=== PATIENT | male | born 1935 | race Asian ===

== ENCOUNTER 2020-10-02 08:07 | Inpatient (IN) | payer MEDICARE, OTHER ==
[~2020-10-02] VITALS: Ht 167.6 cm; Wt 68.0 kg
[2020-10-02 09:32] LABS: Basophils # (auto) 0 10 ^3/uL (0-0.2); Basophils % (auto) 0.2 % (0.0-2.0); Eosinophils # (auto) 0 10 ^3/uL (0-0.8); Eosinophils % (auto) 0.4 % (0.0-7.0); Hemoglobin 14.6 g/dL (13.5-17.5); Lymphocytes # (auto) 0.7 10 ^3/uL (0.4-5.4); Lymphocytes % (auto) 8.3 % (10.0-50.0); Mean Corpuscular Hemoglobin 32.7 pg (28.0-32.0); Mean Corpuscular Hgb Conc. 33.9 g/dL (32.0-36.0); Mean Corpuscular Volume 96.5 fL (80.0-100.0); Monocytes # (auto) 0.8 10 ^3/uL (0-1.3); Monocytes % (auto) 9.9 % (0.0-12.0); Neutrophils # (auto) 6.5 10 ^3/uL (1.6-8.6); Neutrophils % (auto) 81.2 % (37.0-80.0); Red Blood Cells 4.46 10^6/uL (4.5-5.90); White Blood Cell 8.1 10^3/uL (4.4-10.8)
[2020-10-02 09:46] LABS: Urine Bacteria NONE SEEN /hpf (None Seen); Urine Blood Negative /uL (Negative); Urine Mucus FEW (None Seen); Urine Specific Gravity 1.021 (1.001-1.035); Urine WBC <1 /hpf (0 - 3)
[2020-10-02 09:48] LABS: Albumin 3.6 g/dL (3.4-5.0); Potassium 3.5 mmol/L (3.5-5.1)
[2020-10-02 09:51] LABS: BUN/Creatinine Ratio 23.9; Bilirubin, Total 0.9 mg/dL (0.2-1.0); Total Protein 7.6 g/dL (6.4-8.2)
[2020-10-02] MEDS ORDERED: SODIUM CHLORIDE 0.9% 1,000 ML IV ONE (12:00)
[2020-10-02 12:16] LABS: Magnesium 2.5 mg/dL (1.6-2.6)
[2020-10-02 12:29] LABS: INR 0.98 (0.9-1.15); Partial Thromboplastin Time 31.1 sec (23.0-31.2)
[2020-10-02] MEDS ORDERED: IOHEXOL 350 MG/ML 100ML IJ ONE (15:41)
[2020-10-02] MEDS ORDERED: cefTRIAXone 1GM/50ML D5W 50 ML IV ONE ×2 (17:45→18:45)
[2020-10-02] MEDS ORDERED: MORPHINE SULFATE INJECTION 2 MG/ML SYRG IV PRN ×3 (18:15→18:45)
[2020-10-02] MEDS ORDERED: NITROGLYCERIN 0.4 MG SL TAB SL PRN (18:15)
[2020-10-02] MEDS ORDERED: HEPARIN DRIP/D5W 100UNITS/ML 250 ML IV SCH (18:30)
[2020-10-02] MEDS ORDERED: ONDANSETRON HCL 4 MG/2 ML VIAL IV PRN (18:45)
[2020-10-02] MEDS ORDERED: HEPARIN SODIUM (PORCINE) 5000 UNITS/ML 1ML VIAL IV ONE ×2 (18:45→19:30)
[2020-10-02 19:02] LABS: Basophils # (auto) 0 10 ^3/uL (0-0.2); Basophils % (auto) 0.4 % (0.0-2.0); Eosinophils # (auto) 0 10 ^3/uL (0-0.8); Eosinophils % (auto) 0.7 % (0.0-7.0); Hematocrit 40.8 % (41.0-53.0); Hemoglobin 13.9 g/dL (13.5-17.5); Lymphocytes # (auto) 0.8 10 ^3/uL (0.4-5.4); Lymphocytes % (auto) 12.1 % (10.0-50.0); Mean Corpuscular Hemoglobin 32.9 pg (28.0-32.0); Mean Corpuscular Volume 96.7 fL (80.0-100.0); Monocytes # (auto) 0.6 10 ^3/uL (0-1.3); Monocytes % (auto) 8.9 % (0.0-12.0); Neutrophils % (auto) 77.9 % (37.0-80.0); Red Blood Cells 4.21 10^6/uL (4.5-5.90); White Blood Cell 6.4 10^3/uL (4.4-10.8)
[2020-10-02 19:17] LABS: INR 1.04 (0.9-1.15); Partial Thromboplastin Time 31.6 sec (23.0-31.2)
[2020-10-02 19:38] LABS: Red Cell Distribution Width 25.9 % (11.8-14.3)
[2020-10-02] MEDS: SODIUM CHLORIDE 0.9% 1,000 ML IV SCH (20:26)
[2020-10-02] MEDS: HEPARIN DRIP/D5W 100UNITS/ML 250 ML IV SCH (20:43)
[2020-10-02] MEDS: metroNIDAZOLE 500MG/100ML 100 ML IV SCH (22:10)
[2020-10-02] MEDS: FAMOTIDINE (10MG/ML) 2ML VL IV SCH (22:10)
[2020-10-02 23:45] VITALS: BP 153/79
[2020-10-03] MEDS ORDERED: LOSA100T25 PO (01:29)
[2020-10-03] MEDS ORDERED: HYDR500C PO (01:29)
[2020-10-03] MEDS ORDERED: TAM04C PO (01:29)
[2020-10-03 03:33] LABS: INR 1.05 (0.9-1.15); Partial Thromboplastin Time 60.1 sec (23.0-31.2)
[2020-10-03] MEDS: SODIUM CHLORIDE 0.9% 1,000 ML IV SCH (04:39)
[2020-10-03 05:00] VITALS: BP 139/77
[2020-10-03] MEDS: metroNIDAZOLE 500MG/100ML 100 ML IV SCH ×3 (05:20→21:50)
[2020-10-03 08:00] VITALS: BP 141/76
[2020-10-03 09:33] LABS: Albumin 3.1 g/dL (3.4-5.0); Calcium 8.3 mg/dL (8.5-10.1); Potassium 3.6 mmol/L (3.5-5.1)
[2020-10-03 09:36] LABS: Basophils # (auto) 0 10 ^3/uL (0-0.2); Basophils % (auto) 0.3 % (0.0-2.0); Bilirubin, Total 0.8 mg/dL (0.2-1.0); Eosinophils # (auto) 0 10 ^3/uL (0-0.8); Eosinophils % (auto) 0.7 % (0.0-7.0); Hematocrit 40.5 % (41.0-53.0); Hemoglobin 13.7 g/dL (13.5-17.5); Lymphocytes # (auto) 0.8 10 ^3/uL (0.4-5.4); Lymphocytes % (auto) 14.4 % (10.0-50.0); Mean Corpuscular Hemoglobin 32.6 pg (28.0-32.0); Mean Corpuscular Hgb Conc. 33.8 g/dL (32.0-36.0); Mean Corpuscular Volume 96.5 fL (80.0-100.0); Monocytes # (auto) 0.5 10 ^3/uL (0-1.3); Monocytes % (auto) 8.5 % (0.0-12.0); Neutrophils # (auto) 4.1 10 ^3/uL (1.6-8.6); Neutrophils % (auto) 76.1 % (37.0-80.0); Red Blood Cells 4.19 10^6/uL (4.5-5.90); Total Protein 6.6 g/dL (6.4-8.2); White Blood Cell 5.4 10^3/uL (4.4-10.8)
[2020-10-03 09:39] LABS: Red Cell Distribution Width 25.8 % (11.8-14.3)
[2020-10-03] MEDS: cefTRIAXone 1GM/50ML D5W 50 ML IV SCH (09:51)
[2020-10-03] MEDS: FAMOTIDINE (10MG/ML) 2ML VL IV SCH ×2 (09:52→21:50)
[2020-10-03 10:06] LABS: INR 1.04 (0.9-1.15); Partial Thromboplastin Time 57.8 sec (23.0-31.2)
[2020-10-03 12:00] VITALS: BP 132/74
[2020-10-03] MEDS: SOD CHL 0.9%/ KCL 20MEQ 1,000 ML IV SCH ×2 (12:15→19:00)
[2020-10-03 15:18] LABS: INR 1.03 (0.9-1.15); Partial Thromboplastin Time 50.8 sec (23.0-31.2)
[2020-10-03 16:00] VITALS: BP 150/66
[2020-10-03] MEDS: HEPARIN DRIP/D5W 100UNITS/ML 250 ML IV SCH (17:13)
[2020-10-03 22:00] VITALS: BP 127/72
[2020-10-04 05:00] VITALS: BP 128/64
[2020-10-04] MEDS: metroNIDAZOLE 500MG/100ML 100 ML IV SCH ×3 (05:41→21:32)
[2020-10-04 06:06] LABS: INR 1.1 (0.9-1.15)
[2020-10-04 06:13] LABS: Partial Thromboplastin Time 74.1 sec (23.0-31.2)
[2020-10-04] MEDS: FAMOTIDINE (10MG/ML) 2ML VL IV SCH ×2 (08:51→21:32)
[2020-10-04] MEDS: cefTRIAXone 1GM/50ML D5W 50 ML IV SCH (08:51)
[2020-10-04 08:55] VITALS: BP 150/71
[2020-10-04] MEDS ORDERED: ENOXAPARIN SOD 80 MG/0.8ML SYRINGE SC ONE (12:30)
[2020-10-04] MEDS: SOD CHL 0.9%/ KCL 20MEQ 1,000 ML IV SCH (12:51)
[2020-10-04 13:00] VITALS: BP 151/76
[2020-10-04] MEDS ORDERED: LOSARTAN POTASSIUM 50 MG TAB PO ONE (13:15)
[2020-10-04 17:00] VITALS: BP 145/63
[2020-10-04] MEDS ORDERED: TAMSULOSIN HYDROCHLORIDE 0.4 MG CAP PO SCH (18:00)
[2020-10-04] MEDS: ENOXAPARIN SOD 80 MG/0.8ML SYRINGE SC SCH (21:32)
[2020-10-04 22:15] VITALS: BP 133/71
[2020-10-05 05:13] VITALS: BP 152/89
[2020-10-05] MEDS: metroNIDAZOLE 500MG/100ML 100 ML IV SCH (05:38)
[2020-10-05 06:11] LABS: Basophils # (auto) 0 10 ^3/uL (0-0.2); Basophils % (auto) 0.4 % (0.0-2.0); Eosinophils # (auto) 0 10 ^3/uL (0-0.8); Eosinophils % (auto) 0.9 % (0.0-7.0); Hematocrit 40.7 % (41.0-53.0); Hemoglobin 13.7 g/dL (13.5-17.5); Lymphocytes # (auto) 0.7 10 ^3/uL (0.4-5.4); Lymphocytes % (auto) 13.1 % (10.0-50.0); Mean Corpuscular Hemoglobin 32.9 pg (28.0-32.0); Mean Corpuscular Hgb Conc. 33.7 g/dL (32.0-36.0); Mean Corpuscular Volume 97.7 fL (80.0-100.0); Monocytes # (auto) 0.3 10 ^3/uL (0-1.3); Neutrophils # (auto) 4.4 10 ^3/uL (1.6-8.6); Neutrophils % (auto) 80.6 % (37.0-80.0); Nucleated Red Blood Cells % 0.1 %; Red Blood Cells 4.17 10^6/uL (4.5-5.90); White Blood Cell 5.4 10^3/uL (4.4-10.8)
[2020-10-05 06:30] LABS: INR 1.16 (0.9-1.15); Partial Thromboplastin Time 34.2 sec (23.0-31.2); Red Cell Distribution Width 25.8 % (11.8-14.3)
[2020-10-05 09:00] VITALS: BP 153/71
[2020-10-05] MEDS: cefTRIAXone 1GM/50ML D5W 50 ML IV SCH (09:14)
[2020-10-05] MEDS: FAMOTIDINE (10MG/ML) 2ML VL IV SCH (09:14)
[2020-10-05] MEDS: ENOXAPARIN SOD 80 MG/0.8ML SYRINGE SC SCH (09:17)
[2020-10-05] MEDS ORDERED: METOPROLOL TARTRATE 25 MG TAB PO SCH (10:00)
[2020-10-05] MEDS ORDERED: APIXABAN 5 MG TAB PO SCH (10:00)
[2020-10-05] MEDS ORDERED: LOSARTAN POTASSIUM 50 MG TAB PO SCH (10:00)
[2020-10-05] MEDS ORDERED: levoFLOXacin 500 MG TAB PO SCH (10:00)
[2020-10-05] MEDS ORDERED: PANT40TA2 PO (10:24)
[2020-10-05] MEDS ORDERED: MET500T PO ×2 (10:24→10:32)
[2020-10-05] MEDS ORDERED: ONDA-144 PO ×2 (10:24→10:32)
[2020-10-05] MEDS ORDERED: LEVO-28 PO ×2 (10:24→10:32)
[2020-10-05] MEDS ORDERED: APIX5TAB PO ×2 (10:24→10:32)
[2020-10-05] MEDS ORDERED: MET25T PO ×2 (10:24→10:32)
[2020-10-05] MEDS ORDERED: metroNIDAZOLE 500 MG TAB PO SCH (14:00)
[2020-10-05 14:47] VITALS: BP 149/70
[2020-10-12] MEDS ORDERED: APIXABAN 5 MG TAB PO SCH (10:00)
== END 2020-10-05 16:45 | disposition home or self-care (01) | DRG 444 ==
LOC: ER 08:07 → TELE 18:11 → TELE-WESTW 23:29
PROVIDERS: ADMIT Internal Medicine; ATTEND Internal Medicine
PROC: 05HB33Z Insertion of Infusion Device into Right Basilic Vein, Percutaneous Approach (ICD-10-PCS; principal; 2020-10-02)
DX: K80.00 Calculus of gallbladder with acute cholecystitis without obstruction (principal); I26.93 Single subsegmental thrombotic pulmonary embolism without acute cor pulmonale; J96.01 Acute respiratory failure with hypoxia; J98.11 Atelectasis; R16.1 Splenomegaly, not elsewhere classified; N40.1 Benign prostatic hyperplasia with lower urinary tract symptoms; R35.0 Frequency of micturition; R91.1 Solitary pulmonary nodule; I71.4 Abdominal aortic aneurysm, without rupture; N28.1 Cyst of kidney, acquired; K76.89 Other specified diseases of liver; Z20.822 Contact with and (suspected) exposure to COVID-19; D69.6 Thrombocytopenia, unspecified; I11.9 Hypertensive heart disease without heart failure; I25.10 Atherosclerotic heart disease of native coronary artery without angina pectoris; I70.0 Atherosclerosis of aorta; I70.8 Atherosclerosis of other arteries; Z79.899 Other long term (current) drug therapy
CPT/HCPCS: 36415; 71046; 71275; 74176; 78582; 80053; 81001; 83690; 83735; 85025; 85379; 85610; 85730; 87426; 93005; 93306; 93970; 96361; 96365; G0378; J0696; J3490

== ENCOUNTER 2024-06-22 20:12 | Inpatient (IN) | payer MEDICARE, OTHER ==
[~2024-06-22] VITALS: Ht 172.7 cm; Wt 70.0 kg
[~2024-06-22 20:12] MED LIST: APIX5TAB PO; HYDR500C3 PO; LEVO500T91 PO; LOSA100T25 PO; MET25T PO; MET500T PO; ONDA-144 PO; TAMS-35 PO
--- NOTE | 2024-06-22 20:29 | ED.PDOC ---
General HPI Comments 89-year-old male presents with a chief complaint of inability to void and hematuria x 3 days. Patient states that he has not been able to empty his bladder for the past x 3 days. Patient mentions also that he had some hematuria at the beginning. Patient reports that he is also feeling some pressure like sensation in his suprapubic region. No other symptoms or modifying factors present at this time. Chief Complaint: Urinary Time Seen by MD: 20:20 Primary Care Provider: UNKNOWN Reviewed notes: Medications, Allergies Allergies: Coded Allergies: NO KNOWN ALLERGIES (Unverified , 10/02/20) Home Meds Active Scripts Ondansetron (Zofran) 4 Mg Tab, 1 TAB PO Q6HR, #20 TAB Prov:CHRISTINA KHOURY MD 10/05/20 Metronidazole (Metronidazole) 500 Mg Tab, 500 MG PO Q8HR for 7 Days, #21 TAB Prov:CHRISTINA KHOURY MD 10/05/20 Metoprolol Tartrate (Lopressor) 25 Mg Tb, 25 MG PO BID for 30 Days, #60 TAB Prov:CHRISTINA KHOURY MD 10/05/20 Levofloxacin Hemihydrate (LEVOFLOXACIN) 500 Mg Tab, 500 MG PO DAILY for 7 Days, #7 TAB Prov:CHRISTINA KHOURY MD 10/05/20 Apixaban Base (ELIQUIS) 5 Mg Tab, 5 MG PO BID for 23 Days, #46 TAB Prov:CHRISTINA KHOURY MD 10/05/20 Apixaban Base (ELIQUIS) 5 Mg Tab, 10 MG PO BID for 7 Days, #28 TAB Prov:CHRISTINA KHOURY MD 10/05/20 Reported Medications Hydroxyurea (Hydroxyurea) 500 Mg Cap, 500 MG PO DAILY, MG 10/03/20 Losartan Potassium & Hydrochlo (Hyzaar) 1 Tab Tab, 1 TAB PO DAILY, #30 TAB 5 Refills 10/03/20 Tamsulosin Hcl (Flomax) 0.4 Mg Cap, 1 CAP PO DAILY, #30 CAP 11 Refills 10/03/20 Information Source: Patient Mode of Arrival: Ambulatory Severity: Moderate Inability to void: Complete Timing: Days Duration: Since onset Has not urinated for: Hours Prehospital treatment: None Onset: Spontaneous Symptoms: Hematuria, Inability to void History of: BPH Location: Suprapubic Penile discharge: None Modifying factors: None associated signs and symptoms: Hematuria, Inability to Void Past Medical History PAST MEDICAL HISTORY: HTN Surgical History: Denies all surgeries Family History Family History: Reviewed,noncontributory to illness Social History Smoker: Non-Smoker Alcohol: Denies ETOH Use Drugs: Denies Drug Use Lives In: Home Constitutional: denies: chills, diaphoresis, fatigue, fever, malaise, sweats, weakness, others EENTM: denies: blurred vision, double vision, ear bleeding, ear discharge, ear drainage, ear pain, ear ringing, eye pain, eye redness, hearing loss, mouth pain, mouth swelling, nasal discharge, nose bleeding, nose congestion, nose pain, photophobia, tearing, throat pain, throat swelling, voice changes, others Respiratory: denies: cough, hemoptysis, orthopnea, SOB at rest, shortness of breath, SOB with excertion, stridor, wheezing, others Cardiovascular: denies: chest pain, dizzy spells, diaphoresis, Dyspnea on exertion, edema, irregular heart beat, left arm pain, lightheadedness, palpitations, PND, syncope, others Gastrointestinal: denies: abdomen distended, abdominal pain, blood streaked bowels, constipated, diarrhea, dysphagia, difficulty swallowing, hematemesis, melena, nausea, poor appetite, poor fluid intake, rectal bleeding, rectal pain, vomiting, others Genitourinary: reports: hematuria, others (Inability to Void ); denies: burning, dysuria, flank pain, frequency, incontinence, penile discharge, penile sore, pain, testicle pain, testicle swelling, urgency Neurological: denies: dizziness, fainting, headache, left sided numbness, left sided weakness, numbness, paresthesia, pre-existing deficit, right sided numbness, right sided weakness, seizure, speech problems, tingling, tremors, weakness, others Musculoskeletal: denies: back pain, gout, joint pain, joint swelling, muscle pain, muscle stiffness, neck pain, others Integumetry: denies: bruises, change in color, change in hair/nails, dryness, laceration, lesions, lumps, rash, wounds, others Allergic/Immunocompromised: denies: Difficulty Healing, Frequent Infections, Hives, Itching, others Hematologic/Lymphatic: denies: anemia, blood clots, easy bleeding, easy bruising, swollen glands, others Endocrine: denies: excessive hunger, excessive sweating, excessive thirst, excessive urination, flushing, intolerance to cold, intolerance to heat, unexplained weight gain, unexplained weight loss, others Psychiatric: denies: anxiety, bipolar disorder, depression, hopeless, panic disorder, schizophrenia, sleepless, suicidal, others All Other Systems: Reviewed and Negative Physical Exam General Appearance: Mild Distress, Normal HEENT: Normal ENT Inspection, Pharynx Normal, TMs Normal Neck: Full Range of Motion, Non-Tender, Normal, Normal Inspection Respiratory: Chest Non-Tender, Lungs Clear, No Accessory Muscle Use, No Respiratory Distress, Normal Breath Sounds Cardiovascular: No Edema, No JVD, No Murmur, No Gallop, Normal Peripheral Pulses, Regular Rate/Rhythm Breast Exam: Deferred Gastrointestinal: No Organomegaly, No Pulsatile Mass, Normal Bowel Sounds, Soft, Suprapubic, Tenderness Genitalia: Deferred Pelvic: Deferred Rectal: Deferred Extremities: No calf tenderness, Normal capillary refill, Normal inspection, Normal range of motion, Non-tender, No pedal edema Musculoskeletal : Apperance: Normal Neurologic: Alert, dental secretary II-XII nml as Tested, No Motor Deficits, Normal Affect, Normal Mood, No Sensory Deficits Cerebellar Function: Normal Reflexes: Normal Skin: Dry, Normal Color, Warm Lymphatic: No Adenopathy Was a procedure done? Was a procedure done?: No Differential Diagnosis Kidney stone (Female): Other Kidney stone (Male): Pyelonephritis, Renal failure, Urinary obstruction, Urolithiasis, Urinary tract infection, Other Penile/Scrotal: Prostatitis, Urolithiasis, Urinary Retention Urinary Problem (Male): Urethritis, Urolithiasis, UTI X-Ray, Labs, Meds, VS Vital Signs Date Time Temp Pulse Resp B/P (MAP) Pulse Ox O2 Delivery O2 Flow Rate FiO2 06/22/24 22:50 88 06/22/24 22:30 82 16 92/54 (67) 96 06/22/24 22:30 82 16 96 Room Air* 0 21 06/22/24 21:55 94 18 95 Room Air* 0 21 06/22/24 21:55 98.4 94 18 85/50 (62) 95 98.4 06/22/24 20:26 97.2 95 16 104/57 (73) 95 Lab Test 06/22/24 22:13 06/22/24 20:53 06/22/24 20:49 Range/Units Lactic Acid Level 1.9 0.4-2.0 mmol/L Urine Color Light-red Yellow Urine Clarity Ex.turbid Clear Urine pH 5.0 5.0-9.0 Urine Specific [place] 1.004 1.001-1.035 Urine Protein Trace H Negative Urine Ketones Trace Negative Urine Blood 3+ H Negative /uL Urine Nitrite Negative Negative Urine Bilirubin Negative Negative Urine Urobilinogen Normal Negative mg/dL Urine Leukocyte Esterase 2+ Negative /uL Urine RBC [id number] 0 - 3 /hpf Urine WBC Clumps Present None Seen /hpf Urine Microscopic WBC [id number] H 0-3 /HPF Urine Squamous Epithelial Cells None seen <5 /hpf Urine Bacteria None seen None Seen /hpf Urine Creatinine 57.35 30.0-125.0 mg/dL Urine Sodium 102 40-220 mmol/L Urine Glucose Normal Normal mg/dL White Blood Count 40.8 *H 4.4-10.8 10^3/uL Red Blood Count 5.64 4.5-5.90 10^6/uL Hemoglobin 14.4 13.5-17.5 g/dL Hematocrit 46.1 41.0-53.0 % Mean Corpuscular Volume 81.8 80.0-100.0 fL Mean Corpuscular Hemoglobin 25.6 L 28.0-32.0 pg Mean Corpuscular Hemoglobin Concent 31.3 L 32.0-36.0 g/dL Red Cell Distribution Width 21.5 H 11.8-14.3 % Platelet Count 486 H 140-450 10^3/uL Mean Platelet Volume 7.8 6.9-10.8 fL Neutrophils (%) (Auto) 37.0-80.0 % Lymphocytes (%) (Auto) 10.0-50.0 % Monocytes (%) (Auto) 0.0-12.0 % Basophils (%) (Auto) 0.0-2.0 % Neutrophils # (Auto) 1.6-8.6 10 ^3/uL Lymphocytes # (Auto) 0.4-5.4 10 ^3/uL Monocytes # (Auto) 0-1.3 10 ^3/uL Differential Total Cells Counted 100.0 100 Neutrophils % (Manual) 96 H 37.0-80.0 Band Neutrophils % (Manual) 2 Lymphocytes % (Manual) 2 L 10.0-50.0 Monocytes % (Manual) 0 0-12 Eosinophils % (Manual) 0 0-7 Basophils % (Manual) 0 0.0-2.0 Metamyelocytes % (manual) 0 Myelocytes % (Manual) 0 Promyelocytes % (Manual) 0 Blast Cells % (Manual) 0 Reactive Lymphocytes 0 Platelet Estimate Increased Prothrombin Time 12.0 H 9.3-11.8 sec Prothrombin Time INR 1.15 0.9-1.15 Activated Partial Thromboplast Time 28.5 24.5-34.5 SEC Sodium Level 138 136-145 mmol/L Potassium Level 5.6 *H 3.5-5.1 mmol/L Chloride Level 107 98-107 mmol/L Carbon Dioxide Level 24 20-31 mmol/L Anion Gap 7 5-15 Blood Urea Nitrogen 34 H 9-23 mg/dL Creatinine 1.65 H 0.700-1.30 mg/dL Glomerular Filtration Rate Calc 40 >90 mL/min BUN/Creatinine Ratio 20.6 H 10.0-20.0 Serum Glucose 146 H 74-106 mg/dL Hemoglobin A1c 5.6 <5.7 % A1C Calcium Level 9.2 8.7-10.4 mg/dL Total Bilirubin 1.4 H 0.2-1.0 mg/dL Direct Bilirubin 0.6 H <0.3 mg/dL Aspartate Amino Transferase (AST) 22 13-40 U/L Alanine Aminotransferase (ALT) 16 7-40 U/L Alkaline Phosphatase 118 H 46-116 U/L Total Protein 6.2 5.7-8.2 g/dL Albumin 4.3 3.2-4.8 g/dL Current Medications Medications (Trade) Dose Ordered Sig/Domingo Route Start Time Stop Time Status Last Admin Ceftriaxone Sodium 50 ml @ 100 mls/hr ONCE ONCE IV 06/22/24 22:00 06/22/24 22:29 DC 06/22/24 22:11 Sodium Chloride 2,000 ml @ 1,000 mls/hr Q2H ONCE IV 06/22/24 22:00 06/22/24 23:59 DC 06/22/24 22:09 Time of 1ST Reevaluation: 20:50 Reevaluation 1ST: Unchanged Time of 2ND Reevaluation: 21:51 Reevaluation 2ND: Improved Patient Education/Counseling: Diagnosis, Treatment, Prognosis Family Education/Counseling: Diagnosis, Treatment, Prognosis Departure 1 Departure Time of Disposition: 21:51 (Patient reports improvement after barlow catheter ) Impression: Primary Impression: Acute urinary retention Additional Impressions: BPH (benign prostatic hyperplasia) Hyperkalemia Acute renal injury Hypotension Disposition: 09 ADMITTED INPATIENT Admit to: Tele Condition: Guarded Discharged With: Self, Relative, Spouse Critical Care Note Critical Care Time?: No I personally scribed for CONRAD BEARD MD ([email or web address]) on 06/22/24 at 20:29. Electronically submitted by Filemon Brown ([email or web address]). CONRAD BEARD MD Jun 22, 2024 20:29
[2024-06-22 20:56] LABS: Urine Bacteria None Seen /hpf (None Seen)
[2024-06-22 21:19] LABS: Sodium 138 mmol/L (136-145)
[2024-06-22 21:20] LABS: Anion Gap 7 (5-15); Calcium 9.2 mg/dL (8.7-10.4); Carbon Dioxide 24 mmol/L (20-31)
[2024-06-22 21:25] LABS: BUN/Creatinine Ratio 20.6 (10.0-20.0)
[2024-06-22 21:30] LABS: Hematocrit 46.1 % (41.0-53.0); Hemoglobin 14.4 g/dL (13.5-17.5); Mean Corpuscular Hemoglobin 25.6 pg (28.0-32.0); Mean Corpuscular Hgb Conc. 31.3 g/dL (32.0-36.0); Mean Corpuscular Volume 81.8 fL (80.0-100.0); Platelet Count (auto) 486 10^3/uL (140-450); Red Blood Cells 5.64 10^6/uL (4.5-5.90); Red Cell Distribution Width 21.5 % (11.8-14.3)
[2024-06-22 21:42] LABS: Blood Urea Nitrogen 34 mg/dL (9-23); Chloride 107 mmol/L (98-107); Glucose 146 mg/dL (74-106)
[2024-06-22 21:43] LABS: Potassium 5.6 mmol/L (3.5-5.1)
[2024-06-22] MEDS ORDERED: SODIUM CHLORIDE 0.9% 1,000 ML IV ONE (21:45)
[2024-06-22 21:49] LABS: INR 1.15 (0.9-1.15); Partial Thromboplastin Time 28.5 SEC (24.5-34.5)
[2024-06-22 21:55] VITALS: PULSE 94; RESP 18; O2SAT 95
[2024-06-22 21:56] LABS: White Blood Cell 40.8 10^3/uL (4.4-10.8)
[2024-06-22 21:58] LABS: Basophils % (manual) 0 (0.0-2.0); Blast Cells 0; Eosinophils % (manual) 0 (0-7); Metamyelocytes % 0; Monocytes % (manual) 0 (0-12); Myelocytes % 0; Promyelocytes % 0; Reactive Lymphocytes 0
[2024-06-22 22:01] LABS: Urine Blood 3+ /uL (Negative); Urine Clarity Ex.Turbid (Clear); Urine Color Light-Red (Yellow); Urine Protein, UAD TRACE (Negative); Urine Specific Gravity 1.004 (1.001-1.035); Urine Squamous Epithelial Cell None Seen /hpf (<5); Urine Urobilinogen Normal (Negative); Urine WBC 358918 /HPF (0-3); Urine WBC Clumps PRESENT /hpf (None Seen)
[2024-06-22] MEDS: SODIUM CHLORIDE 0.9% 2,000 ML IV ONE (22:09)
[2024-06-22] MEDS: cefTRIAXone 1GM/50ML D5W 50 ML IV ONE (22:11)
[2024-06-22 22:18] LABS: Band Neutrophils % (manual) 2; Lymphocytes % (manual) 2 (10.0-50.0); Platelet Estimate Increased
[2024-06-22 22:30] VITALS: PULSE 82; RESP 16; O2SAT 96
--- NOTE | 2024-06-22 22:30 | DVH ---
CHEST RADIOGRAPH Indication: weak, low BP Technique: Single frontal view of the chest was obtained Comparison: None FINDINGS: Lines and Tubes: None Lungs: Clear Pleura: No effusion. No pneumothorax. Cardiomediastinal contours: Unremarkable Bones: Unremarkable IMPRESSION: Clear lungs.
--- NOTE | 2024-06-22 23:17 | DVHHPRES ---
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 According to the patient and patient's son at bedside, patient was unable to urinate for the last 2-3 days, when he finally was able to urinate he saw blood in his urine which is what prompted this visit to the hospital. Patient reports having similar symptoms 7 years ago when he was in [place] and went to the hospital where he was told he has "bad kidneys". Associated symptoms include suprapubic pressure-like sensation. On review of systems, he is complaining of fatigue, chills, urinary retention. UA showed 2+ leukocyte esterase, [id number] RBCs, 3 million WBCs, serum potassium was 5.6, WBC count 40.8k. 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, abdominal aortic aneurysm of 4.2 cm in 2019, pulmonary embolism, benign prostatic hyperplasia, hypertension, right apical pulmonary nodule Past Surgical History Denies Past Social History Smoking: Quit 40 years ago, prior to that was smoking 1 pack per day for 10 years Alcohol: Denies Drugs: Denies Review of Systems Constitutional: Yes: Chills, Malaise; No: Fever, Sweats, Weakness, Other Eyes: No: Pain, Vision change, Conjunctivae inflammation, Eyelid inflammation, Other, Redness ENT: No: Ear pain, Ear discharge, Nose pain, Nose discharge, Nose congestion, Mouth pain, Mouth swelling, Throat pain, Throat swelling, Other Respiratory: No: Cough, Dry, Shortness of breath, SOB with excertion, Wheezing, Hemoptysis, Pleuritic Pain, Sputum, Wheezing, Other Cardiovascular: No: Chest Pain, Palpitations, Orthopnea, Paroxysmal Noc. Dyspnea, Edema, Lt Headedness, Other Gastrointestinal: No: Nausea, Vomiting, Abdominal Pain, Diarrhea, Constipation, Melena, Hematochezia, Other Genitourinary: No Dysuria, No Frequency, No Incontinence, No Hematuria; Re tention; No Other Musculoskeletal: No: other, neck pain, shoulder pain, arm pain, back pain, hand pain, leg pain, foot pain Skin: No: Rash, Lesions, Jaundice, Bruising, Other Neurological: No: Weakness, Numbness, Incoordination, Change in speech, Confusion, Seizures, Other Allergies: Coded Allergies: NO KNOWN ALLERGIES (Unverified , 10/02/20) Medications Current Medications Medications Dose Ordered Sig/Domingo Route Start Time Stop Time Status Last Admin Dose Admin Acetaminophen 650 mg Q6HP PRN PO 06/22/24 23:15 UNV Cefepime HCl 50 ml @ 12.5 mls/hr Q12HR IV 06/23/24 10:00 UNV Hydroxyurea 500 mg DAILY PO 06/23/24 10:00 UNV Exam Vital Signs Vital Signs Date Time Temp Pulse Resp B/P (MAP) Pulse Ox O2 Delivery O2 Flow Rate FiO2 06/22/24 22:50 88 06/22/24 22:30 16 96 Room Air* 0 21 06/22/24 21:55 98.4 85/50 (62) 98.4 General Appearance: Alert, Oriented X3, Cooperative, No acute distress HEENT: Atraumatic, PERRLA, EOMI Respiratory: Clear to auscultation, Normal air movement Cardiovascular: Regular rate, Normal S1, Normal S2 Abdominal: Normal bowel sounds, Soft, Other (Suprapubic tenderness to palpation) Extremities: No clubbing, No edema, Other (Decreased bilateral pedal pulses) Skin: No breakdown, No significant lesion Neuro: Normal gait, Normal speech, Strength at 5/5 X4 ext, Sensation intact Psych/Mental Status: Mental status NL, Mood NL Labs/Xrays Labs Test 06/22/24 22:13 06/22/24 20:53 06/22/24 20:49 Range/Units Urine Color Light-red Yellow Urine Clarity Ex.turbid Clear Urine pH 5.0 5.0-9.0 Urine Specific [place] 1.004 1.001-1.035 Urine Protein Trace H Negative Urine Ketones Trace Negative Urine Blood 3+ H Negative /uL Urine Nitrite Negative Negative Urine Bilirubin Negative Negative Urine Urobilinogen Normal Negative mg/dL Urine Leukocyte Esterase 2+ Negative /uL Urine RBC [id number] 0 - 3 /hpf Urine WBC Clumps Present None Seen /hpf Urine Microscopic WBC [id number] H 0-3 /HPF Urine Squamous Epithelial Cells None seen <5 /hpf Urine Bacteria None seen None Seen /hpf Urine Glucose Normal Normal mg/dL White Blood Count 40.8 *H 4.4-10.8 10^3/uL Red Blood Count 5.64 4.5-5.90 10^6/uL Hemoglobin 14.4 13.5-17.5 g/dL Hematocrit 46.1 41.0-53.0 % Mean Corpuscular Volume 81.8 80.0-100.0 fL Mean Corpuscular Hemoglobin 25.6 L 28.0-32.0 pg Mean Corpuscular Hemoglobin Concent 31.3 L 32.0-36.0 g/dL Red Cell Distribution Width 21.5 H 11.8-14.3 % Platelet Count 486 H 140-450 10^3/uL Mean Platelet Volume 7.8 6.9-10.8 fL Neutrophils (%) (Auto) 37.0-80.0 % Lymphocytes (%) (Auto) 10.0-50.0 % Monocytes (%) (Auto) 0.0-12.0 % Basophils (%) (Auto) 0.0-2.0 % Neutrophils # (Auto) 1.6-8.6 10 ^3/uL Lymphocytes # (Auto) 0.4-5.4 10 ^3/uL Monocytes # (Auto) 0-1.3 10 ^3/uL Differential Total Cells Counted 100.0 100 Neutrophils % (Manual) 96 H 37.0-80.0 Band Neutrophils % (Manual) 2 Lymphocytes % (Manual) 2 L 10.0-50.0 Monocytes % (Manual) 0 0-12 Eosinophils % (Manual) 0 0-7 Basophils % (Manual) 0 0.0-2.0 Metamyelocytes % (manual) 0 Myelocytes % (Manual) 0 Promyelocytes % (Manual) 0 Blast Cells % (Manual) 0 Reactive Lymphocytes 0 Platelet Estimate Increased Prothrombin Time 12.0 H 9.3-11.8 sec Prothrombin Time INR 1.15 0.9-1.15 Activated Partial Thromboplast Time 28.5 24.5-34.5 SEC Sodium Level 138 136-145 mmol/L Potassium Level 5.6 *H 3.5-5.1 mmol/L Chloride Level 107 98-107 mmol/L Carbon Dioxide Level 24 20-31 mmol/L Anion Gap 7 5-15 Blood Urea Nitrogen 34 H 9-23 mg/dL Creatinine 1.65 H 0.700-1.30 mg/dL Glomerular Filtration Rate Calc 40 >90 mL/min BUN/Creatinine Ratio 20.6 H 10.0-20.0 Serum Glucose 146 H 74-106 mg/dL Calcium Level 9.2 8.7-10.4 mg/dL Assessment/Plan Assessment/Plan Acute onset hematuria Urinary retention Rule out bladder versus prostate malignancy Ct abdomen pelvis: Possible cholelithiasis consider abdominal ultrasound to exclude acute cholecystitis. Hepatic cysts. Splenomegaly measuring 17-18 cm in length. No findings of bowel obstruction stool is noted throughout the colon. Prostate measures 6.7 x 5.8 cm. Correlate with PSA. 2Cm cortical cyst right k idney - renal ultrasound: 10.3 cm long right kidney with hydronephrosis. 10.9 cm left kidney no hydronephrosis. 1.7 x 1.8 x 1.9 cm cyst in the right kidney. Escalante catheter in the bladder in the bladder appears empty. Bladder wall measures 11.5 cm may be secondary to its decompressed state. - ordered PSA - continuous bladder irrigation failed, inserted 22 Thai catheter, returned 3 00 mL of bloody urine output. Manual irrigation - consulted Urology - strict I&Os - normal coagulation studies with a mildly prolonged PT of 12 Possible sepsis due to UTI - IV cefepime b.i.d. - IV NS 2 L - IV NS maintenance at 100 cc/hour - acetaminophen as needed JANNETTE likely hemodynamically mediated/VMN on possible CKD Hyperkalemia - hyperkalemia protocol with insulin dextrose, albuterol and sodium bicarb - Lokelma 10 g p.o. once History of abdominal aortic aneurysm History of blood cell dyscrasia History of right apical pulmonary nodule - resumed home medication hydroxyurea DVT prophylaxis: SCDs Goals of care: Full code, discussed for >16 minutes on 06/22/2024 Plan discussed with patient and patient's son at bedside Plan discussed with Dr. Hwang Plan discussed with: Patient, Son, Other (RN) My Orders Orders - RIMA GREGORIO RESIDENT Procedure Category Date Status Time Admit ADMIT 06/22/24 Transmitted 23:07 Code Status CODE 06/22/24 Transmitted 23:07 Vital Signs POOL 06/22/24 In Process 23:07 Review Orders With POOL 06/22/24 In Process Adm. 23:07 Acetaminophen Tablet PHA 06/22/24 Logged (Tylenol Tablet) 23:15 Notify Of Changes POOL 06/22/24 In Process From Base 23:07 Advance Directive POOL 06/22/24 In Process 23:07 Urine Bacterial TRAVIS 06/22/24 In Process Culture 23:07 Patient Condition ORDERS 06/22/24 Transmitted 23:07 Allergies POOL 06/22/24 In Process 23:07 Notify Of Changes POOL 06/22/24 In Process From Base 23:[address] 06/22/24 Logged Contrast 23:09 Kidney US 06/22/24 Logged 23:09 Hepatic Panel LAB 06/22/24 Logged 23:09 * Urology Consult CONS 06/22/24 Transmitted 23:09 Urine Sodium LAB 06/22/24 In Process 23:09 Urine Creatinine LAB 06/22/24 In Process 23:09 Potassium LAB 06/23/24 Verified 03:09 Insulin R (Human) PHA 06/22/24 Logged (Insulin R) 23:15 Dextrose 50% Syringe PHA 06/22/24 Logged 23:15 Albuterol Medneb PHA 06/22/24 Logged (Ventolin Medneb) 23:15 Sodium Bicarb PHA 06/22/24 Logged 50meq/50ml Syr 23:15 Sodium Zirconium PHA 06/22/24 Logged Cyclosilicate 23:15 Psa Total+% Free LAB 06/22/24 Logged 23:11 Hemoglobin A1c LAB 06/22/24 Logged 23:11 Cefepime 2gm/50ml Ns PHA 06/23/24 Logged (Maxipime 2gm/50ml) 10:00 Hydroxyurea Capsule PHA 06/23/24 Logged (Hydrea Capsule) 10:00 AORTA US 06/23/24 Logged 08:00 Date of Service: Jun 22, 2024 Billing Provider: SOM SIMS MD Common Visit Codes: 44670-UVHCNPT INP/OBS CARE (HIGH) RIMA GREGORIO RESIDENT Jun 22, 2024 23:17 SOM SIMS MD Jun 23, 2024 09:35
[2024-06-22] MEDS: SODIUM ZIRCONIUM CYCL 10 GM PAK PO ONE (23:35)
[2024-06-22] MEDS: SODIUM BICARB 8.4% 50Meq/50ml SYR INJ IV ONE (23:36)
[2024-06-22] MEDS: DEXTROSE (50%) 50ML SYRG IV ONE (23:36)
[2024-06-22 23:41] LABS: Albumin 4.3 g/dL (3.2-4.8); Total Protein 6.2 g/dL (5.7-8.2)
[2024-06-22] MEDS: InsuLIN REG 1unit/0.01ml Soln (100units/ml) IV ONE (23:42)
[2024-06-22] MEDS: ALBUTEROL SULF 2.5 MG/0.5ML(0.5%) NEB SOLN NEB ONE (23:46)
[2024-06-22 23:49] LABS: Bilirubin, Direct 0.6 mg/dL (<0.3); Bilirubin, Total 1.4 mg/dL (0.2-1.0)
--- NOTE | 2024-06-22 23:52 | DVH ---
Exam: CT CT AB PEL WO CON-NO ORAL OR IV History: renal cysts retention Comparison Study: None available at time of dictation. TECHNIQUE: Multidetector CT of the abdomen was performed from lung bases to pubic symphysis. Imaging was performed without IV contrast. Axial, coronal and sagittal multiplanar reformats were obtained fr om the axial data set by the technologist. Radiation Dose Information: CT Dose: CTDI volume is 5.25 mGy. Dose-length product is 284.22 mGy*cm FINDINGS: Evaluation of solid organs is limited due to lack of intravenous contrast use. Findings: Lung Bases: No acute or significant lung base finding. Cardiac size is enlarged.. No pleural or oren cardial effusion. Liver: The liver is normal in size. No focal lesions. Measures 13.7 cm in length. Multiple small in trahepatic cysts. Gallbladder and Biliary Tree: Cholelithiasis Spleen: Splenomegaly 17.8 cm Pancreas: The pancreas is grossly normal in appearance. Adrenal Glands: Unremarkable Kidneys: Kidneys are grossly normal without calculi or hydronephrosis. 2 cm cortical cyst right kidne y Bladder: Escalante catheter in the bladder in the bladder is still distended with urine Bowel: The stomach is grossly normal in appearance. Small bowel and colon are normal in caliber and d istribution. No findings of bowel obstruction although stool is noted throughout the colon. The appe ndix is not visualized; however, no secondary findings of acute appendicitis identified. Ascites: Absent Lymphadenopathy: No mesenteric, retroperitoneal or periportal lymphadenopathy. Abdominal Wall and Mesentery: Unremarkable. Vasculature: The visualized abdominal aorta is normal in size and caliber. Evaluation of abdominal a nd pelvic vessels is limited due to lack of intravenous contrast. Pelvic Organs: Unremarkable Musculoskeletal: No aggressive focal bony lesions, acute fractures or dislocation. Soft tissues: Unremarkable IMPRESSION: 1. Possible cholelithiasis consider abdominal ultrasound to exclude acute cholecystitis. 2. Hepatic cysts 3. Splenomegaly measuring 17-18 cm in length. 4. No findings of bowel obstruction stool is noted throughout the colon. 5. Prostate measures 6.7 x 5.8 cm. Correlate with PSA. 6. Cm cortical cyst right kidney Radiation optimization: All CT scans at this facility use at least one of these dose optimization te chniques: automated exposure control mA and/or kV adjustment per patient size (includes targeted exa ms where dose is matched to clinical indication) or iterative reconstruction. HS:Y
[2024-06-23] VITALS (9 sets, daily range): BP systolic 97–120; BP diastolic 50–60; PULSE 70–85; RESP 13–20; TEMP 97.7–99; O2SAT 94–100
[2024-06-23 00:01] LABS: Creatinine, Urine 57.35 mg/dL (30.0-125.0)
--- NOTE | 2024-06-23 00:01 | DVH ---
INDICATION: cysts TECHNIQUE: Multiple real-time sonographic images of the kidneys and bladder were obtained. COMPARISON: None FINDINGS: There is a 17 x 18 x 19 mm anechoic lesion in the right kidney consistent with a cyst. The right kidney measures 10.3 cm in length, which is normal in size. There is normal echogenicity of the right kidney. There is hydronephrosis in the right kidney. . The left kidney measures 10.9 cm in length, which is normal in size. There is normal echogenicity of the left kidney. No hydronephrosis. No large intraluminal masses are seen in the bladder. Escalante catheter in the bladder in the bladder is empty IMPRESSION: 1. 10.3 cm long right kidney with hydronephrosis 2. 10.9 cm left kidney no hydronephrosis 3. 1.7 x 1.8 x 1.9 cm cyst in the right kidney. 4. Escalante catheter in the bladder in the bladder appears empty. Bladder wall measures 11.5 cm may be secondary to its decompressed state. HS:Y
[2024-06-23] MEDS: ACETAMINOPHEN 325 MG TAB PO PRN (01:30)
[2024-06-23] MEDS: SODIUM CHLORIDE 0.9% 1,000 ML IV SCH (02:30)
[2024-06-23] MEDS: LIDOCAINE 2% TOPICAL JELLY 5 ML URJT TOP ONE ×3 (02:35→04:49)
[2024-06-23] MEDS: LIDOCAINE VISCOUS 2% 15ML UD PO ONE (02:35)
[2024-06-23] MEDS: LIDOCAINE 2%HCL (LOCAL ANESTH.) INJ 10ml MDV ONE (02:38)
[2024-06-23] MEDS: LIDOCAINE HCL 2% TOP JELLY 5ML TOP ONE ×2 (02:41→04:46)
[2024-06-23 03:49] LABS: Hemoglobin 11.8 g/dL (13.5-17.5)
[2024-06-23 03:54] LABS: Hematocrit 38.2 % (41.0-53.0)
[2024-06-23 06:12] LABS: Hematocrit 37.7 % (41.0-53.0); Hemoglobin 11.6 g/dL (13.5-17.5); Mean Corpuscular Hemoglobin 24.8 pg (28.0-32.0); Mean Corpuscular Hgb Conc. 30.7 g/dL (32.0-36.0); Mean Corpuscular Volume 80.7 fL (80.0-100.0); Platelet Count (auto) 503 10^3/uL (140-450); Red Blood Cells 4.66 10^6/uL (4.5-5.90)
[2024-06-23 06:13] LABS: Red Cell Distribution Width 21.6 % (11.8-14.3)
[2024-06-23 06:14] LABS: White Blood Cell 31.8 10^3/uL (4.4-10.8)
[2024-06-23 06:16] LABS: Basophils % (manual) 0 (0.0-2.0); Blast Cells 0; Eosinophils % (manual) 0 (0-7); Metamyelocytes % 0; Myelocytes % 0; Promyelocytes % 0; Reactive Lymphocytes 0
[2024-06-23 06:26] LABS: Potassium 4.2 mmol/L (3.5-5.1); Sodium 144 mmol/L (136-145)
[2024-06-23 06:27] LABS: Anion Gap 14 (5-15)
[2024-06-23 06:42] LABS: Blood Urea Nitrogen 35 mg/dL (9-23); Calcium 8.3 mg/dL (8.7-10.4); Carbon Dioxide 19 mmol/L (20-31); Chloride 111 mmol/L (98-107); Glucose 170 mg/dL (74-106)
[2024-06-23 07:15] LABS: Band Neutrophils % (manual) 2; Lymphocytes % (manual) 3 (10.0-50.0); Monocytes % (manual) 3 (0-12)
[2024-06-23 07:16] LABS: Anisocytosis Moderate
[2024-06-23 07:17] LABS: Hypochromia Slight; Platelet Estimate Increased
[2024-06-23 08:55] LABS: Hepatitis B Surface Antigen Negative (Negative)
[2024-06-23 09:15] LABS: Hepatitis A Ab IgM Negative; Hepatitis B Core IgM Negative (Negative); Hepatitis C Antibody Negative (Negative)
--- NOTE | 2024-06-23 10:48 | DVH ---
LOWER EXTREMITY ARTERIAL DOPPLER EXAM CLINICAL HISTORY: Decreased pedal pulses TECHNIQUE: Bilateral lower extremity arterial Doppler ultrasound evaluation. COMPARISON: None FINDINGS: There are predominantly triphasic waveforms throughout the lower extremity arteries. There are biphas ic waveforms distally in the posterior tibial and dorsalis pedis arteries. There is no focal vessel o cclusion. The peak systolic velocities are within normal limits. No significant flow-limiting atherom atous plaque formation is seen. IMPRESSION: 1. No hemodynamically significant stenosis in the lower extremity arteries. HS:Y
[2024-06-23] MEDS: CEFEPIME 2GM/50ML NS 50 ML IV SCH (11:01)
[2024-06-23] MEDS ORDERED: TAMS0.4C39 (12:00)
[2024-06-23] MEDS ORDERED: ALLO300T2 PO (12:00)
[2024-06-23 14:30] LABS: Basophils # (auto) 0 10 ^3/uL (0-0.2); Basophils % (auto) 0.1 % (0.0-2.0); Eosinophils # (auto) 0 10 ^3/uL (0-0.8); Eosinophils % (auto) 0.1 % (0.0-7.0); Hematocrit 35.2 % (41.0-53.0); Hemoglobin 10.9 g/dL (13.5-17.5); Lymphocytes # (auto) 0.8 10 ^3/uL (0.4-5.4); Lymphocytes % (auto) 2.4 % (10.0-50.0); Mean Corpuscular Hemoglobin 25.1 pg (28.0-32.0); Monocytes # (auto) 0.6 10 ^3/uL (0-1.3); Neutrophils # (auto) 30.8 10 ^3/uL (1.6-8.6); Neutrophils % (auto) 95.4 % (37.0-80.0); Platelet Count (auto) 504 10^3/uL (140-450); Red Blood Cells 4.35 10^6/uL (4.5-5.90)
[2024-06-23 14:31] LABS: Red Cell Distribution Width 21.5 % (11.8-14.3)
[2024-06-23 14:33] LABS: White Blood Cell 32.3 10^3/uL (4.4-10.8)
[2024-06-23 14:41] LABS: Sodium 143 mmol/L (136-145)
[2024-06-23 14:42] LABS: Anion Gap 3 (5-15); Calcium 8.4 mg/dL (8.7-10.4); Carbon Dioxide 28 mmol/L (20-31); Chloride 112 mmol/L (98-107); Potassium 5.4 mmol/L (3.5-5.1)
[2024-06-23 14:47] LABS: BUN/Creatinine Ratio 26.9 (10.0-20.0)
[2024-06-23 14:48] LABS: Blood Urea Nitrogen 32 mg/dL (9-23); Glucose 119 mg/dL (74-106)
[2024-06-23] MEDS: ALBUTEROL SULF 2.5 MG/0.5ML(0.5%) NEB SOLN NEB ONE (15:26)
[2024-06-23] MEDS ORDERED: HYDROcodone-ACET 5/325MG TAB PO PRN (16:30)
[2024-06-23] MEDS: SODIUM ZIRCONIUM CYCL 10 GM PAK PO ONE (17:32)
--- NOTE | 2024-06-23 18:28 | DVHPNRES ---
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 According to the patient and patient's son at bedside, patient was unable to urinate for the last 2-3 days, when he finally was able to urinate he saw blood in his urine which is what prompted this visit to the hospital. Patient reports having similar symptoms 7 years ago when he was in [place] and went to the hospital where he was told he has "bad kidneys". Associated symptoms include suprapubic pressure-like sensation. On review of systems, he is complaining of fatigue, chills, urinary retention. UA showed 2+ leukocyte esterase, [id number] RBCs, 3 million WBCs, serum potassium was 5.6, WBC count 40.8k. 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 Patient reported that the pain in the suprapubic region is better Objective vital signs Vital Sign Date Time Temp Pulse Resp B/P (MAP) Pulse Ox O2 Delivery O2 Flow Rate FiO2 06/23/24 15:40 70 14 100 06/23/24 13:00 97.7 104/60 (75) 97.7 06/23/24 08:00 Room Air* 0 21 Total Intake and Output 06/22/24 06/22/24 06/23/24 15:00 23:00 07:00 Intake Total 100 ml Output Total 100 ml Balance 0 ml medications Current Medications Medications Dose Ordered Sig/Domingo Route Start Time Stop Time Status Last Admin Dose Admin Acetaminophen 650 mg Q6HP PRN PO 1/26/25 23:15 06/23/24 01:30 650 MG Cefepime HCl 50 ml @ 12.5 mls/hr Q12HR IV 06/23/24 10:00 06/23/24 11:01 12.5 MLS/HR Hydroxyurea 500 mg DAILY PO 06/23/24 10:00 Sodium Chloride 1,000 ml @ 100 mls/hr Q10H IV 06/23/24 02:30 06/23/24 13:54 100 MLS/HR Acetaminophen/ Hydrocodone Bitart 1 tab Q6HPRN PRN PO 06/23/24 16:30 Examination Physical Examination Constitutional: Patient was alert and oriented to time, place and person and does not appear to be in acute distress Gen - no pallor, no icterus, no cyanosis, no clubbing, no LAD, no edema . Skin - Patients skin is warm and dry. HEENT - normocephalic, atraumatic, moist mucous membranes. Neck - full ROM, no LAD, no JVD Pulmonary - B/L vesicular breath sounds, no crackles , no wheezing cardiovascular - normal S1,S2 heard. no murmurs heard. GI - soft abdomen with mild tenderness to palpation in the suprapubic region. no hepatospleenomegaly. Bowel sounds normoactive Neurological - Bilateral upper extremity strength 5/5, bilateral lower extremity strength 5/5, no facial droop, normal speech, no tremor, no sensory deficiets. laboratory and microbiology Laboratory Tests 06/23/24 14:15 Test 06/23/24 14:15 Range/Units Serum Glucose 119 H 74-106 mg/dL Problem List/Assessment/Plan Problem List/Assessment/Plan Acute onset hematuria Urinary retention Rule out bladder versus prostate malignancy - Ct abdomen pelvis: Possible cholelithiasis consider abdominal ultrasound to exclude acute cholecystitis. Hepatic cysts. Splenomegaly measuring 17-18 cm in length. No findings of bowel obstruction stool is noted throughout the colon. - Prostate measures 6.7 x 5.8 cm. - renal ultrasound: 10.3 cm long right kidney with hydronephrosis. 10.9 cm left kidney no hydronephrosis. 1.7 x 1.8 x 1.9 cm cyst in the right kidney. Escalante catheter in the bladder in the bladder appears empty. Bladder wall measures 11.5 cm may be secondary to its decompressed state. - PSA pending - manual irrigation done- multiple clots removed. Patient put on continuous bladder irrigation - urology consult pending - strict I&Os Possible sepsis due to UTI - IV cefepime b.i.d. - IV NS 2 L - IV NS maintenance at 100 cc/hour - acetaminophen as needed JANNETTE likely hemodynamically mediated/VMN on possible CKD Hyperkalemia - hyperkalemia protocol with insulin dextrose, albuterol and sodium bicarb - [facility] History of abdominal aortic aneurysm History of blood cell dyscrasia History of right apical pulmonary nodule - resumed home medication hydroxyurea DVT prophylaxis: SCD Goals of care discussed with the patient for over 25 minutes. Full code Plan discussed with Dr. Gordon Plan discussed with: Patient My Orders My Orders Orders - ANJELICA ZELAYA Procedure Category Date Status Time Regular Diet DIET 06/23/24 Transmitted Dinner Bladder US 06/23/24 Transmitted 15:11 Hydrocodone-Acet PHA 06/23/24 In Process 5/325mg Tab ([place] 16:30 Date of Service: Jun 23, 2024 Billing Provider: TONI GORDON MD Common Visit Codes: [id number] CARE 30-74 MIN (45 minutes of critical care time spent including POCUS ) ANJELICA ZELAYA Jun 23, 2024 18:28 TONI GORDON MD Jun 24, 2024 08:58
[2024-06-23] MEDS: hydroxyUREA 500 MG CAP PO SCH (21:46)
[2024-06-24] VITALS (8 sets, daily range): BP systolic 127–136; BP diastolic 56–83; PULSE 72–91; RESP 13–18; TEMP 97.6–98.7; O2SAT 94–98
--- NOTE | 2024-06-24 08:55 | DVHINCON2 ---
Date of service: Jun 24, 2024 Referring Physician Hospitalist Reason for Consultation hematuria History of Present Illness History Source: Patient, RN Notes, MD Notes, [employer] Roofing Estimator Exam Limitations: Language barrier HPI 89 yo male with c/o gross hematuria and difficulty urinating for 3 days. Currently on CBI with light pink urine. Home Meds Reported Medications Allopurinol (Allopurinol) 300 Mg Tab, 1 TAB PO DAILY 06/23/24 Tamsulosin Hcl (Tamsulosin Hcl) 0.4 Mg Cap 06/23/24 Hydroxyurea (Hydroxyurea) 500 Mg Cap, 500 MG PO DAILY, MG 10/03/20 Losartan Potassium & Hydrochlo (Hyzaar) 1 Tab Tab, 1 TAB PO DAILY, #30 TAB 5 Refills 10/03/20 Tamsulosin Hcl (Flomax) 0.4 Mg Cap, 1 CAP PO DAILY, #30 CAP 11 Refills 10/03/20 Past Medical History Patient Family History: Patient reports no known family medical history. Review of Systems Genitourinary: Dysuria, Hematuria H&P Exam Vital Signs Vital Signs Date Time Temp Pulse Resp B/P (MAP) Pulse Ox O2 Delivery O2 Flow Rate FiO2 06/24/24 04:59 98.7 83 13 129/78 (95) 94 98.7 06/23/24 20:00 Room Air* 0 21 General Appeara: Well developed, Well nourished, Normal Appearance Neuro/Mental St: Alert, Oriented Appearance: Appropriate appearance, Appropriate insight Eye contact/ Speech: Cooperative, Good eye contact, Normal speech Skin Exam: Normal inspection, Normal color, Warm/dry Labs/Xrays [place] [address] Ph: [phone] DIAGNOSTIC IMAGING Diagnostic Imaging Report : [id number] Signed PATIENT: CRISTINA SORENSEN ACCT: [id number] UNIT: [id number] : 1935 LOC: TELE ROOM / BED: [address] [place] [address] AGE / SEX: 89 / M ADM STATUS: ADM IN SERVICE 08 ORDERING PHYSICIAN: RIMA GREGORIO RESIDENT PROCEDURE(s): ABPL - CT AB PEL WO CON-NO ORAL OR IV REASON: renal cysts?retention ORDER NUMBER(s): [id number], ACCESSION NUMBER(s): [id number] Exam: CT CT AB PEL WO CON-NO ORAL OR IV History: renal cysts retention Comparison Study: None available at time of dictation. TECHNIQUE: Multidetector CT of the abdomen was performed from lung bases to pubic symphysis. Imaging was performed without IV contrast. Axial, coronal and sagittal multiplanar reformats were obtained from the axial data set by the technologist. Radiation Dose Information: CT Dose: CTDI volume is 5.25 mGy. Dose-length product is 284.22 mGy*cm FINDINGS: Evaluation of solid organs is limited due to lack of intravenous contrast use. Findings: Lung Bases: No acute or significant lung base finding. Cardiac size is enlarged.. No pleural or pericardial effusion. Liver: The liver is normal in size. No focal lesions. Measures 13.7 cm in le ngth. Multiple small intrahepatic cysts. Gallbladder and Biliary Tree: Cholelithiasis Spleen: Splenomegaly 17.8 cm Pancreas: The pancreas is grossly normal in appearance. Adrenal Glands: Unremarkable Kidneys: Kidneys are grossly normal without calculi or hydronephrosis. 2 cm cortical cyst right kidney Bladder: Escalante catheter in the bladder in the bladder is still distended with urine Bowel: The stomach is grossly normal in appearance. Small bowel and colon are normal in caliber and distribution. No findings of bowel obstruction although stool is noted throughout the colon. The appendix is not visualized; however, no secondary findings of acute appendicitis identified. Ascites: Absent Lymphadenopathy: No mesenteric, retroperitoneal or periportal lymphadenopathy. Abdominal Wall and Mesentery: Unremarkable. Vasculature: The visualized abdominal aorta is normal in size and caliber. Evaluation of abdominal and pelvic vessels is limited due to lack of intravenous contrast. Pelvic Organs: Unremarkable Musculoskeletal: No aggressive focal bony lesions, acute fractures or dislocation. Soft tissues: Unremarkable IMPRESSION: 1. Possible cholelithiasis consider abdominal ultrasound to exclude acute cholecystitis. 2. Hepatic cysts 3. Splenomegaly measuring 17-18 cm in length. 4. No findings of bowel obstruction stool is noted throughout the colon. 5. Prostate measures 6.7 x 5.8 cm. Correlate with PSA. 6. Cm cortical cyst right kidney Radiation optimization: All CT scans at this facility use at least one of these dose optimization techniques: automated exposure control mA and/or kV adjustment per patient size (includes targeted exams where dose is matched to clinical indication) or iterative reconstruction. HS:Y ATED BY: LAM TEJEDA Jr., DO DICTATED DATE/TIME: 06/22/242348 SIGNED BY: LAM TEJEDA Jr., DO SIGNED DATE/TIME: 06/22/242348 CC: [place] [address] Ph: [phone] DIAGNOSTIC IMAGING Diagnostic Imaging Report : [id number] Signed PATIENT: CRISTINA SORENSEN ACCT: [id number] UNIT: [id number] : 1935 LOC: TELE ROOM / BED: [address] [place] [address] AGE / SEX: 89 / M ADM STATUS: ADM IN SERVICE 08 ORDERING PHYSICIAN: RIMA GREGORIO RESIDENT PROCEDURE(s): KIDUS - KIDNEY REASON: cysts? ORDER NUMBER(s): [id number], ACCESSION NUMBER(s): [id number] INDICATION: cysts TECHNIQUE: Multiple real-time sonographic images of the kidneys and bladder were obtained. COMPARISON: None FINDINGS: There is a 17 x 18 x 19 mm anechoic lesion in the right kidney consistent with a cyst. The right kidney measures 10.3 cm in length, which is normal in size. There is normal echogenicity of the right kidney. There is hydronephrosis in the right kidney. . The left kidney measures 10.9 cm in length, which is normal in size. There is normal echogenicity of the left kidney. No hydronephrosis. No large intraluminal masses are seen in the bladder. Escalante catheter in the bladder in the bladder is empty IMPRESSION: 1. 10.3 cm long right kidney with hydronephrosis 2. 10.9 cm left kidney no hydronephrosis 3. 1.7 x 1.8 x 1.9 cm cyst in the right kidney. 4. Escalante catheter in the bladder in the bladder appears empty. Bladder wall measures 11.5 cm may be secondary to its decompressed state. HS:Y ATED BY: LAM TEJEDA Jr., DO DICTATED DATE/TIME: 06/22/242357 SIGNED BY: LAM TEJEDA Jr., DO SIGNED DATE/TIME: 06/22/24 1359 CC: Labs Test 06/23/24 14:15 06/23/24 03:33 06/22/24 23:44 06/22/24 22:13 Range/Units White Blood Count 32.3 *H 4.4-10.8 10^3/uL Red Blood Count 4.35 L 4.5-5.90 10^6/uL Hemoglobin 10.9 L 13.5-17.5 g/dL Hematocrit 35.2 L 41.0-53.0 % Mean Corpuscular Volume 81.0 80.0-100.0 fL Mean Corpuscular Hemoglobin 25.1 L 28.0-32.0 pg Mean Corpuscular Hemoglobin Concent 31.0 L 32.0-36.0 g/dL Red Cell Distribution Width 21.5 H 11.8-14.3 % Platelet Count 504 H 140-450 10^3/uL Mean Platelet Volume 7.6 6.9-10.8 fL Neutrophils (%) (Auto) 95.4 H 37.0-80.0 % Lymphocytes (%) (Auto) 2.4 L 10.0-50.0 % Monocytes (%) (Auto) 2.0 0.0-12.0 % Eosinophils (%) (Auto) 0.1 0.0-7.0 % Basophils (%) (Auto) 0.1 0.0-2.0 % Neutrophils # (Auto) 30.8 H 1.6-8.6 10 ^3/uL Lymphocytes # (Auto) 0.8 0.4-5.4 10 ^3/uL Monocytes # (Auto) 0.6 0-1.3 10 ^3/uL Eosinophils # (Auto) 0 0-0.8 10 ^3/uL Basophils # (Auto) 0 0-0.2 10 ^3/uL Nucleated Red Blood Cells 0.0 % Sodium Level 143 136-145 mmol/L Potassium Level 5.4 H 3.5-5.1 mmol/L Chloride Level 112 H 98-107 mmol/L Carbon Dioxide Level 28 20-31 mmol/L Anion Gap 3 L 5-15 Blood Urea Nitrogen 32 H 9-23 mg/dL Creatinine 1.19 0.700-1.30 mg/dL Glomerular Filtration Rate Calc 59 >90 mL/min BUN/Creatinine Ratio 26.9 H 10.0-20.0 Serum Glucose 119 H 74-106 mg/dL Calcium Level 8.4 L 8.7-10.4 mg/dL Differential Total Cells Counted 100.0 100 Neutrophils % (Manual) 92 H 37.0-80.0 Band Neutrophils % (Manual) 2 Lymphocytes % (Manual) 3 L 10.0-50.0 Monocytes % (Manual) 3 0-12 Eosinophils % (Manual) 0 0-7 Basophils % (Manual) 0 0.0-2.0 Metamyelocytes % (manual) 0 Myelocytes % (Manual) 0 Promyelocytes % (Manual) 0 Blast Cells % (Manual) 0 Reactive Lymphocytes 0 Platelet Estimate Increased Hypochromasia (manual) Slight Anisocytosis (manual) Moderate Hepatitis A IgM Antibody Negative Hepatitis B Surface Antigen Negative Negative Hepatitis B Core IgM Antibody Negative Negative Hepatitis C Antibody Negative Negative Lactic Acid Level 1.9 0.4-2.0 mmol/L Test 06/22/24 20:53 06/22/24 20:49 Range/Units Urine Color Light-red Yellow Urine Clarity Ex.turbid Clear Urine pH 5.0 5.0-9.0 Urine Specific [place] 1.004 1.001-1.035 Urine Protein Trace H Negative Urine Ketones Trace Negative Urine Blood 3+ H Negative /uL Urine Nitrite Negative Negative Urine Bilirubin Negative Negative Urine Urobilinogen Normal Negative mg/dL Urine Leukocyte Esterase 2+ Negative /uL Urine RBC [id number] 0 - 3 /hpf Urine WBC Clumps Present None Seen /hpf Urine Microscopic WBC [id number] H 0-3 /HPF Urine Squamous Epithelial Cells None seen <5 /hpf Urine Bacteria None seen None Seen /hpf Urine Creatinine 57.35 30.0-125.0 mg/dL Urine Sodium 102 40-220 mmol/L Urine Glucose Normal Normal mg/dL Prothrombin Time 12.0 H 9.3-11.8 sec Prothrombin Time INR 1.15 0.9-1.15 Activated Partial Thromboplast Time 28.5 24.5-34.5 SEC Hemoglobin A1c 5.6 <5.7 % A1C Total Bilirubin 1.4 H 0.2-1.0 mg/dL Direct Bilirubin 0.6 H <0.3 mg/dL Aspartate Amino Transferase (AST) 22 13-40 U/L Alanine Aminotransferase (ALT) 16 7-40 U/L Alkaline Phosphatase 118 H 46-116 U/L Total Protein 6.2 5.7-8.2 g/dL Albumin 4.3 3.2-4.8 g/dL Microbiology Date/Time Source Procedure Growth Status 06/22/24 22:13 Blood Blood Culture - Preliminary NO GROWTH AFTER 24 HOURS OF INCUBATION. Resulted Assessment/Plan Problem List: (1) Gross hematuria (2) BPH (benign prostatic hyperplasia) (3) Acute urinary retention Plan continue CBI manual irrigation PRN cysto TBA inpt vs oupt depending on clinical course. would benefit from TURP Plan discussed with: Other NIKI ECHEVERRIA NP Jun 24, 2024 08:54
--- NOTE | 2024-06-24 09:04 | ECG ---
[facility] Test Date: 2024-06-22 Test Time: 22:50:10 Pat Name: CRISTINA SORENSEN Department: ER Room: 0220T B Gender: M Gis Mapping Technician: : 1935 Requested By: CONRAD BEARD Order Number: [id number] Reading MD: Pedro Khan Measurements Intervals [place] Rate: 88 P: 7 AK: 144 QRS: 264 QRSD: 100 T: 31 QT: 399 QTc: 483 Interpretive Statements Sinus rhythm Consider right ventricular hypertrophy Inferior infarct, old Electronically Signed On 06-25-2024 8:51:47 PST by Pedro Khan Please click the below link to view image of tracing.
[2024-06-24 09:06] LABS: PSA Free 3.68 ng/mL; Prostate Specific Antigen 10.9 ng/mL (0.0-4.0)
[2024-06-24 10:59] LABS: Hemoglobin 10.2 g/dL (13.5-17.5)
[2024-06-24 11:02] LABS: Hematocrit 33.2 % (41.0-53.0); Mean Corpuscular Hemoglobin 25.4 pg (28.0-32.0); Mean Corpuscular Hgb Conc. 30.8 g/dL (32.0-36.0); Mean Corpuscular Volume 82.2 fL (80.0-100.0); Platelet Count (auto) 470 10^3/uL (140-450); Red Blood Cells 4.03 10^6/uL (4.5-5.90)
[2024-06-24] MEDS: FINASTERIDE 5 MG TAB PO SCH (11:13)
[2024-06-24 11:27] LABS: Red Cell Distribution Width 20.6 % (11.8-14.3)
[2024-06-24 11:31] LABS: Band Neutrophils % (manual) 0; Basophils % (manual) 0 (0.0-2.0); Blast Cells 0; Eosinophils % (manual) 0 (0-7); Metamyelocytes % 0; Myelocytes % 0; Promyelocytes % 0; Reactive Lymphocytes 0; White Blood Cell 30.3 10^3/uL (4.4-10.8)
[2024-06-24 11:52] LABS: BUN/Creatinine Ratio 20.3 (10.0-20.0)
[2024-06-24 11:55] LABS: Chloride 111 mmol/L (98-107); Potassium 4.3 mmol/L (3.5-5.1); Sodium 142 mmol/L (136-145)
[2024-06-24 11:56] LABS: Blood Urea Nitrogen 24 mg/dL (9-23); Calcium 8.4 mg/dL (8.7-10.4); Glucose 145 mg/dL (74-106)
[2024-06-24 12:16] LABS: Anisocytosis Slight; Lymphocytes % (manual) 4 (10.0-50.0); Monocytes % (manual) 5 (0-12); Platelet Estimate Increased
[2024-06-24 13:39] LABS: Anion Gap 7 (5-15); Carbon Dioxide 24 mmol/L (20-31)
--- NOTE | 2024-06-24 19:52 | DVHPNRES ---
Progress Note Date Seen: Jun 24, 2024 Resident Creating Document: ASHUTOSHANJELICA ISAACS RESIDENT Medical Necessity Reason Pt with a Central, PICC or Fol: Yes The following are medically ne: Escalante Catheter Subjective Review of Systems patient is on continuous bladder irrigation draining light pinkish colored fluid. Patient reported that the pain in the suprapubic region is better than yesterday. No new complaints Objective vital signs Vital Sign Date Time Temp Pulse Resp B/P (MAP) Pulse Ox O2 Delivery O2 Flow Rate FiO2 06/24/24 16:30 98.6 76 17 135/69 (91) 96 98.6 06/24/24 08:00 Room Air* 0 21 Total Intake and Output 06/23/24 06/23/24 06/24/24 15:00 23:00 07:00 Intake Total 250 ml 100 ml Balance 250 ml 100 ml medications Current Medications Medications Dose Ordered Sig/Domingo Route Start Time Stop Time Status Last Admin Dose Admin Acetaminophen 650 mg Q6HP PRN PO 06/22/24 23:15 06/23/24 01:30 650 MG Cefepime HCl 50 ml @ 12.5 mls/hr Q12HR IV 06/23/24 10:00 06/24/24 11:14 12.5 MLS/HR Hydroxyurea 500 mg DAILY PO 06/23/24 10:00 06/24/24 11:14 500 MG Acetaminophen/ Hydrocodone Bitart 1 tab Q6HPRN PRN PO 06/23/24 16:30 Finasteride 5 mg DAILY PO 06/24/24 10:00 06/24/24 11:13 5 MG Examination Constitutional: Patient was alert and oriented to time, place and person and does not appear to be in acute distress Gen - no pallor, no icterus, no cyanosis, no clubbing, no LAD, no edema . Skin - Patients skin is warm and dry. HEENT - normocephalic, atraumatic, moist mucous membranes. Neck - full ROM, no LAD, no JVD Pulmonary - B/L vesicular breath sounds, no crackles , no wheezing cardiovascular - normal S1,S2 heard. no murmurs heard. GI - soft abdomen with mild tenderness to palpation in the suprapubic region. no hepatospleenomegaly. Bowel sounds normoactive Neurological - Bilateral upper extremity strength 5/5, bilateral lower extremity strength 5/5, no facial droop, normal speech, no tremor, no sensory deficiets. laboratory and microbiology Laboratory Tests 06/24/24 10:10 Test 06/24/24 10:10 Range/Units Serum Glucose 145 H 74-106 mg/dL Microbiology Date/Time Source Procedure Growth Status 06/22/24 22:13 Blood Blood Culture - Preliminary NO GROWTH AFTER 24 HOURS OF INCUBATION. Resulted 06/22/24 20:53 Voided Urine Urine Culture - Preliminary Resulted Problem List/Assessment/Plan Problem List/Assessment/Plan Acute onset hematuria Urinary retention Rule out bladder versus prostate malignancy - Ct abdomen pelvis: Possible cholelithiasis consider abdominal ultrasound to exclude acute cholecystitis. Hepatic cysts. Splenomegaly measuring 17-18 cm in length. No findings of bowel obstruction stool is noted throughout the colon. - Prostate measures 6.7 x 5.8 cm. - renal ultrasound: 10.3 cm long right kidney with hydronephrosis. 10.9 cm left kidney no hydronephrosis. 1.7 x 1.8 x 1.9 cm cyst in the right kidney. Escalante catheter in the bladder in the bladder appears empty. Bladder wall measures 11.5 cm may be secondary to its decompressed state. - PSA pending - manual irrigation done- multiple clots removed. Patient put on continuous bladder irrigation - urology consulted - strict I&Os Possible sepsis due to UTI - IV cefepime b.i.d. - IV NS 2 L - IV NS maintenance d/adonay - acetaminophen as needed JANNETTE likely hemodynamically mediated/VMN on possible CKD Hyperkalemia - hyperkalemia protocol with insulin dextrose, albuterol and sodium bicarb - [facility] History of abdominal aortic aneurysm History of blood cell dyscrasia History of right apical pulmonary nodule - resumed home medication hydroxyurea Patient is on continous bladder irrigation draining blood tinged pinkish fluid. Urology evaluated the patient and recommended keep CBI and assess the patient in the morning for further recommendations of whether inpatient/outpatient procedure required. DVT prophylaxis: SCD Goals of care discussed with the patient for over 21 minutes. Full code Plan discussed with Dr. Jarvis Plan discussed with: Patient Date of Service: Jun 24, 2024 Billing Provider: TONI JARVIS MD Common Visit Codes: [id number] INP/OBS CARE(HIGH) ANJELICA ZELAYA RESIDENT Jun 24, 2024 19:52 TONI JARVIS MD Jun 25, 2024 09:57
[2024-06-25 01:00] VITALS: BP 126/57; PULSE 73; RESP 17; TEMP 98.3; O2SAT 96
[2024-06-25 05:00] VITALS: BP 105/61; PULSE 81; RESP 17; TEMP 98.6; O2SAT 97
[2024-06-25 06:49] LABS: Hemoglobin 10.2 g/dL (13.5-17.5); White Blood Cell 29.4 10^3/uL (4.4-10.8)
[2024-06-25 06:55] LABS: Hematocrit 33.6 % (41.0-53.0); Mean Corpuscular Hemoglobin 25.2 pg (28.0-32.0); Mean Corpuscular Hgb Conc. 30.4 g/dL (32.0-36.0); Mean Corpuscular Volume 82.7 fL (80.0-100.0); Platelet Count (auto) 490 10^3/uL (140-450); Red Blood Cells 4.07 10^6/uL (4.5-5.90); Red Cell Distribution Width 20.8 % (11.8-14.3)
[2024-06-25 07:01] LABS: Anion Gap 6 (5-15); Carbon Dioxide 25 mmol/L (20-31); Potassium 4.1 mmol/L (3.5-5.1); Sodium 139 mmol/L (136-145)
[2024-06-25 07:02] LABS: Calcium 9.1 mg/dL (8.7-10.4)
[2024-06-25 07:07] LABS: Blood Urea Nitrogen 21 mg/dL (9-23); Glucose 90 mg/dL (74-106)
[2024-06-25 07:08] LABS: Band Neutrophils % (manual) 0; Basophils % (manual) 0 (0.0-2.0); Blast Cells 0; Metamyelocytes % 0; Myelocytes % 0; Promyelocytes % 0; Reactive Lymphocytes 0
[2024-06-25 07:11] LABS: Chloride 108 mmol/L (98-107)
[2024-06-25 08:00] VITALS: PULSE 75; PULSE 76; RESP 18; O2SAT 96
[2024-06-25 08:20] LABS: Eosinophils % (manual) 1 (0-7); Lymphocytes % (manual) 4 (10.0-50.0); Monocytes % (manual) 3 (0-12); Smudge Cells 3 /100 WBC
[2024-06-25 08:21] LABS: Anisocytosis Slight; Platelet Estimate Increased
[2024-06-25 08:38] VITALS: BP 145/65; PULSE 75; RESP 18; TEMP 98.4; O2SAT 96
[2024-06-25 11:40] VITALS: BP 111/54; PULSE 68; RESP 17; TEMP 98.1; O2SAT 95
[2024-06-25 16:24] VITALS: BP 120/74; PULSE 80; RESP 16; TEMP 97.8; O2SAT 97
--- NOTE | 2024-06-25 20:59 | DVHDSRES ---
Discharge Summary Date of Admission Resident Creating Document: ANJELICA ZELAYA RESIDENT Jun 22, 2024 at 23:07 Date of Discharge: Jun 25, 2024 Admitting Diagnosis Acute onset hematuria Urinary retention Rule out bladder versus prostate malignancy Possible sepsis due to UTI JANNETTE likely hemodynamically mediated/VMN on possible CKD Hyperkalemia History of abdominal aortic aneurysm History of blood cell dyscrasia History of right apical pulmonary nodule Wounds: none Labs/Diagnostic Data: Laboratory Results Test 06/25/24 05:57 06/23/24 14:15 06/23/24 03:33 06/22/24 23:44 White Blood Count 29.4 10^3/uL (4.4-10.8) Red Blood Count 4.07 10^6/uL (4.5-5.90) Hemoglobin 10.2 g/dL (13.5-17.5) Hematocrit 33.6 % (41.0-53.0) Mean Corpuscular Volume 82.7 fL (80.0-100.0) Mean Corpuscular Hemoglobin 25.2 pg (28.0-32.0) Mean Corpuscular Hemoglobin Concent 30.4 g/dL (32.0-36.0) Red Cell Distribution Width 20.8 % (11.8-14.3) Platelet Count 490 10^3/uL (140-450) Mean Platelet Volume 7.7 fL (6.9-10.8) Neutrophils (%) (Auto) % (37.0-80.0) Lymphocytes (%) (Auto) % (10.0-50.0) Monocytes (%) (Auto) % (0.0-12.0) Basophils (%) (Auto) % (0.0-2.0) Neutrophils # (Auto) 10 ^3/uL (1.6-8.6) Lymphocytes # (Auto) 10 ^3/uL (0.4-5.4) Monocytes # (Auto) 10 ^3/uL (0-1.3) Differential Total Cells Counted 100.0 (100) Neutrophils % (Manual) 92 (37.0-80.0) Band Neutrophils % (Manual) 0 Lymphocytes % (Manual) 4 (10.0-50.0) Monocytes % (Manual) 3 (0-12) Eosinophils % (Manual) 1 (0-7) Basophils % (Manual) 0 (0.0-2.0) Metamyelocytes % (manual) 0 Myelocytes % (Manual) 0 Promyelocytes % (Manual) 0 Blast Cells % (Manual) 0 Reactive Lymphocytes 0 Smudge Cells 3 /100 WBC Platelet Estimate Increased Anisocytosis (manual) Slight Sodium Level 139 mmol/L (136-145) Potassium Level 4.1 mmol/L (3.5-5.1) Chloride Level 108 mmol/L (98-107) Carbon Dioxide Level 25 mmol/L (20-31) Anion Gap 6 (5-15) Blood Urea Nitrogen 21 mg/dL (9-23) Creatinine 1.00 mg/dL (0.700-1.30) Glomerular Filtration Rate Calc 73 mL/min (>90) BUN/Creatinine Ratio 21.0 (10.0-20.0) Serum Glucose 90 mg/dL (74-106) Calcium Level 9.1 mg/dL (8.7-10.4) Eosinophils (%) (Auto) 0.1 % (0.0-7.0) Eosinophils # (Auto) 0 10 ^3/uL (0-0.8) Basophils # (Auto) 0 10 ^3/uL (0-0.2) Nucleated Red Blood Cells 0.0 % Hypochromasia (manual) Slight Hepatitis A IgM Antibody Negative Hepatitis B Surface Antigen Negative (Negative) Hepatitis B Core IgM Antibody Negative (Negative) Hepatitis C Antibody Negative (Negative) Free Prostate Specific Antigen 3.68 ng/mL (N/A) Percent Free Prostate Specific Ag 33.8 % (.) Prostate Specific Antigen Total 10.9 ng/mL (0.0-4.0) Test 06/22/24 22:13 06/22/24 20:53 06/22/24 20:49 Lactic Acid Level 1.9 mmol/L (0.4-2.0) Urine Color Light-red (Yellow) Urine Clarity Ex.turbid (Clear) Urine pH 5.0 (5.0-9.0) Urine Specific [place] 1.004 (1.001-1.035) Urine Protein Trace (Negative) Urine Ketones Trace (Negative) Urine Blood 3+ /uL (Negative) Urine Nitrite Negative (Negative) Urine Bilirubin Negative (Negative) Urine Urobilinogen Normal mg/dL (Negative) Urine Leukocyte Esterase 2+ /uL (Negative) Urine RBC [id number] /hpf (0 - 3) Urine WBC Clumps Present /hpf (None Seen) Urine Microscopic WBC [id number] /HPF (0-3) Urine Squamous Epithelial Cells None seen /hpf (<5) Urine Bacteria None seen /hpf (None Seen) Urine Creatinine 57.35 mg/dL (30.0-125.0) Urine Sodium 102 mmol/L (40-220) Urine Glucose Normal mg/dL (Normal) Prothrombin Time 12.0 sec (9.3-11.8) Prothrombin Time INR 1.15 (0.9-1.15) Activated Partial Thromboplast Time 28.5 SEC (24.5-34.5) Hemoglobin A1c 5.6 % A1C (<5.7) Total Bilirubin 1.4 mg/dL (0.2-1.0) Direct Bilirubin 0.6 mg/dL (<0.3) Aspartate Amino Transferase (AST) 22 U/L (13-40) Alanine Aminotransferase (ALT) 16 U/L (7-40) Alkaline Phosphatase 118 U/L (46-116) Total Protein 6.2 g/dL (5.7-8.2) Albumin 4.3 g/dL (3.2-4.8) Other Laboratory Tests 06/25/24 05:57 Brief Hx & Hospital Course: Patient is an 89-year-old male with past medical history of a 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 According to the patient and patient's son at bedside, patient was unable to urinate for the last 2-3 days, when he finally was able to urinate he saw blood in his urine which is what prompted this visit to the hospital. Patient reports having similar symptoms 7 years ago when he was in [place] and went to the hospital where he was told he has "bad kidneys". Associated symptoms include suprapubic pressure-like sensation. On review of systems, he is complaining of fatigue, chills, urinary retention. UA showed 2+ leukocyte esterase, [id number] RBCs, 3 million WBCs, serum potassium was 5.6, WBC count 40.8k. 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 While in the hospital patient was initially put a Escalante's catheter but it did not drain urine with flow of urine around the catheter. A larger [place] catheter 22 Colombian was inserted with drainage of dark red blood and clots. Manual irrigation was done with removal of multiple clots and the patient was started on continuous bladder irrigation. Intermittently manual irrigation was done to remove clots. Urology were consulted who recommended continuing the bladder irrigation. The drainage eventually cleared up and the patient has started draining light pinkish colored fluid. Patient's son lives in [facility] and requested that the patient be discharged because it is difficult for him to travel to the hospital to take care. Urology cleared the patient for discharge with Escalante's to leg bag and follow up in the urology outpatient clinic as soon as possible. Bladder irrigation was stopped and the patient had urine but it was red in color, bladder ultrasound showed less than 20 mL urine. Patient was discharged in stable condition to home and advised to follow up in the Urology outpatient clinic after referral from his primary care physician as soon as possible. In the case patient had pain and no flow noted in the Escalante's catheter he was advised to be taken to the ED. urine and blood cultures were negative and antibiotics were discontinued and patient was not prescribed any home antibiotics. Patient has a history of blood cell dyscrasia which might be the reason for elevated WBC count. Patient during the hospital course did not have fever, hypotension, tachypnea. Discharge plan Follow up with the PCP as soon as possible for further referral to the Urology outpatient clinic. Follow up in the Urology outpatient clinic with as soon as possible Discharged to home with 22F Escalante's catheter to leg bag. Consults/Reason for consult urology consulted for gross hematuria Operations or Procedures CT Abd pelvis without contrast Findings: Lung Bases: No acute or significant lung base finding. Cardiac size is enlarged.. No pleural or pericardial effusion. Liver: The liver is normal in size. No focal lesions. Measures 13.7 cm in length. Multiple small intrahepatic cysts. Gallbladder and Biliary Tree: Cholelithiasis Spleen: Splenomegaly 17.8 cm Pancreas: The pancreas is grossly normal in appearance. Adrenal Glands: Unremarkable Kidneys: Kidneys are grossly normal without calculi or hydronephrosis. 2 cm cortical cyst right kidney Bladder: Escalante catheter in the bladder in the bladder is still distended with urine Bowel: The stomach is grossly normal in appearance. Small bowel and colon are normal in caliber and distribution. No findings of bowel obstruction although stool is noted throughout the colon. The appendix is not visualized; however, no secondary findings of acute appendicitis identified. Ascites: Absent Lymphadenopathy: No mesenteric, retroperitoneal or periportal lymphadenopathy. Abdominal Wall and Mesentery: Unremarkable. Vasculature: The visualized abdominal aorta is normal in size and caliber. Evaluation of abdominal and pelvic vessels is limited due to lack of intravenous contrast. Pelvic Organs: Unremarkable Musculoskeletal: No aggressive focal bony lesions, acute fractures or dislocation. Soft tissues: Unremarkable IMPRESSION: 1. Possible cholelithiasis consider abdominal ultrasound to exclude acute cholecystitis. 2. Hepatic cysts 3. Splenomegaly measuring 17-18 cm in length. 4. No findings of bowel obstruction stool is noted throughout the colon. 5. Prostate measures 6.7 x 5.8 cm. Correlate with PSA. 6. Cm cortical cyst right kidney Renal US FINDINGS: There is a 17 x 18 x 19 mm anechoic lesion in the right kidney consistent with a cyst. The right kidney measures 10.3 cm in length, which is normal in size. There is normal echogenicity of the right kidney. There is hydronephrosis in the right kidney. . The left kidney measures 10.9 cm in length, which is normal in size. There is normal echogenicity of the left kidney. No hydronephrosis. No large intraluminal masses are seen in the bladder. Escalante catheter in the bladder in the bladder is empty IMPRESSION: 1. 10.3 cm long right kidney with hydronephrosis 2. 10.9 cm left kidney no hydronephrosis 3. 1.7 x 1.8 x 1.9 cm cyst in the right kidney. 4. Escalante catheter in the bladder in the bladder appears empty. Bladder wall measures 11.5 cm may be secondary to its decompressed state. Lower extremity arterial Duplex FINDINGS: There are predominantly triphasic waveforms throughout the lower extremity arteries. There are biphasic waveforms distally in the posterior tibial and dorsalis pedis arteries. There is no focal vessel occlusion. The peak systolic velocities are within normal limits. No significant flow-limiting atheromatous plaque formation is seen. IMPRESSION: No hemodynamically significant stenosis in the lower extremity arteries. Condition at Discharge: Fair Final Diagnosis/Problems List Acute onset hematuria Urinary retention Rule out bladder versus prostate malignancy Possible sepsis due to UTI ?WBC elevated d/t blood cell dyscrasia JANNETTE likely hemodynamically mediated/VMN on possible CKD Hyperkalemia History of abdominal aortic aneurysm History of blood cell dyscrasia History of right apical pulmonary nodule Discharge Disposition: Home Discharge Instruct/Medications Diet: Regular Activity: No Restrictions, As Tolerated Follow Up/Referral: Follow up with urology in the outpatient clinic as scheduled Follow up in the discharge clinic in one week Medications: as per EMR take losartan/Hydrochlorthiazide 100/25 - half tablet if SBP>150mmhg full tablet if SBP>170mmhg Discharge Statement: "Patient was advised to return to the ER or call 911 if any headaches, dizziness, shortness of breath, chest pain, abdominal pain, bleeding, fevers, or worsening of medical condition. Patient was counseled about treatment plan, medications, possible side effects, patientverbalized understanding. All questions were answered to the best of my ability. This discharge took greater then 30 minutes in planning, reviewing documentation, counseling the patient, and discussing with other team members." ASSESSMENT ASSESSMENT Assessment Acute onset hematuria Urinary retention Rule out bladder versus prostate malignancy Possible sepsis due to UTI JANNETTE likely hemodynamically mediated/VMN on possible CKD Hyperkalemia History of abdominal aortic aneurysm History of blood cell dyscrasia History of right apical pulmonary nodule ANJELICA ZELAYA RESIDENT Jun 25, 2024 20:59
== END 2024-06-25 17:15 | disposition home or self-care (01) | DRG 871 ==
LOC: ER 20:12 → TELE 23:07 → TELE-CENTR 06-23 08:47
PROVIDERS: ADMIT Student in an Organized Health Care Education/Training Program; ATTEND Student in an Organized Health Care Education/Training Program
DX: A41.9 Sepsis, unspecified organism (principal); N17.0 Acute kidney failure with tubular necrosis; N39.0 Urinary tract infection, site not specified; E87.5 Hyperkalemia; N18.9 Chronic kidney disease, unspecified; I12.9 Hypertensive chronic kidney disease with stage 1 through stage 4 chronic kidney disease, or unspecified chronic kidney disease; N40.1 Benign prostatic hyperplasia with lower urinary tract symptoms; Z79.899 Other long term (current) drug therapy
CPT/HCPCS: 36415; 71045; 74176; 76775; 80048; 80074; 80076; 81001; 82570; 83036; 83605; 84132; 84154; 84300; 85007; 85014; 85018; 85025; 85027; 85610; 85730; 87040; 87086; 93005; 93925; 94640; G0378; J0692; J1815; J2003